=== PATIENT | male | born 1995 | race Caucasian/White ===

== ENCOUNTER 2021-09-30 15:25 | Inpatient (IN) ==
[2021-09-30] MEDS ORDERED: LORazepam 0.5 MG TAB PO STA (16:15)
--- NOTE | 2021-09-30 16:18 | Emergency Department Note ---
Impression & Plan Depression with suicidal ideation, Anxiety ED Provider Note Provider: Willis Richard MD DATE OF SERVICE: 09/30/2021 CHIEF COMPLAINT: Suicidal thoughts, anxious HISTORY OF PRESENT ILLNESS: Patient is a 25-year-old gentleman history of depression presenting here referred by his outpatient therapist today for evaluation of worsening suicidal thoughts over the past 2 weeks. Patient with history of some depression of been on multiple psychiatric medicines in the past. Denies a history of suicide attempts or inpatient hospitalizations. Reports over the last 2 weeks has had near constant thoughts of awake of wanting to end his life. States he has been thinking of the occasionally punched himself in the head some but has not knocked himself out. Denies pain currently. States he feels tremulous and is quite tearful during the exam. States not been eating well again not sleeping well. Patient denies any homicidal ideations or hallucinations. Patient denies any drug or alcohol iss ues. Patient states he believes he needs inpatient treatment at this time. Therapist did call and discussed with insurance case manager prior to his arrival stating that he had reported several plans that he may attempt to commit suicide. He however did not wish to provide a petitioning statement. REVIEW OF SYSTEMS: A total of 10 review of systems was obtained and negative except as stated above in the HPI. PAST MEDICAL HISTORY: As noted above MEDICATIONS: No medication last SOCIAL HISTORY: Here with fianc/partner PHYSICAL EXAM: GENERAL: alert and oriented tearful in bed Head: normocephalic and atraumatic EYES: No injection, discharge or icterus although tearful NECK: Trachea midline. Supple. ENT: Mucous membranes pink and moist. LUNGS: Airway patent. No retractions. Breath sounds clear with good air entry bilaterally. HEART: Regular rate and rhythm. No chest wall tenderness ABDOMEN: Soft and non-tender, without guarding or rebound. SKIN: Acyanotic, warm, dry, without rashes EXTREMITIES: Without swelling, tenderness or deformity NEUROLOGICAL: No focal deficits. No aphasia. No facial droop or slurred speech. Ambulatory. Psych: Anxious and tremulous on exam. Very tearful. Denies hallucinations not responding to external stimuli. Denies HI. Endorses SI but does not clearly define a plan to me. Patient's laboratory studies reviewed. Differential includes Mood disorder, infection, hypoglycemia, electrolyte abnormalities, cardiac sources, intracerebral event, toxicologic, trauma, neurologic, as well as other pathologies. IMPRESSION/MEDICAL DECISION MAKING: Patient history of depression on psychotropic medications and states compliance with these now with worsening anxiety and now suicidal thoughts. Patient initial evaluation wishes for inpatient treatment states he feels very anxious. Tearful. Given a small dose of oral Ativan. Basic labs obtained. No severe lab abnormality noted. Seen with insurance case manager. Voluntary inpatient psychiatric care was sought which I believe is reasonable given his report. Evaluated by and excepted [facility] for further inpatient psychiatric care. 201 signed. DIAGNOSIS: Suicidal thoughts, anxious depression DISPOSITION: Admission to [facility] for further inpatient psychiatric care. Past Med/Surg History Medical History (Updated 09/30/21 @ 23:01 by Willis Richard M.D.) Asthma CONTROLLED/LAST USE INHALER 4-5 MON AGO Bipolar disorder Depression Impacted teeth Infected tooth PT NOT SURE Surgical History (Updated 10/27/20 @ 14:33 by Ashley Cottrell RN) No history of previous surgery S/P wisdom tooth extraction (10/27/20) Impacted [place] Teeth Removal; #1, 16, 17, 32 Dr. 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 Beliefs That Will Affect Care: None marital status: Single Current Living Situation: Spouse current occupational status: student How many Children do You have: 0 Feels Safe at Home: Yes Assistive Devices: None Allergies Allergies Allergy/AdvReac Type Severity Reaction Status Date / Time No Known Allergies Allergy Verified 10/27/20 06:26 Home Meds Home Medications Medication Instructions Recorded Confirmed citalopram 20 mg tablet 20 mg PO QPM 09/10/20 09/30/21 trazodone 50 mg tablet 100 mg PO HS PRN tab 09/10/20 09/30/21 topiramate 25 mg tablet 50 mg PO DAILY 09/30/21 09/30/21 Results & Data (ED) Vital Signs Vital Signs - 24 hr 09/30/21 15:40 09/30/21 21:30 Temperature 36.9 C Temperature Source Oral Pulse Rate 82 Respiratory Rate 20 15 Respiratory Effort / Characteristics Non-Labored Respiratory Depth Normal Normal Blood Pressure 152/90 H Blood Pressure [Left Arm] 137/81 Blood Pressure Mean 110 Blood Pressure Mean [Left Arm] 99 Pulse Oximetry 99 98 Oxygen Delivery Method Room Air Room Air Sepsis Recent Fever Within 48 Hours No Sepsis New/Unexplained Change in Mental Status N/A Sepsis Action Taken by Nursing No Action Required Laboratory Data Result diagrams: 09/30/21 16:36 09/30/21 16:36 Lab Results 09/30/21 09/30/21 09/30/21 Range/Units 15:50 15:50 16:25 WBC (4.8-10.8) K/uL RBC (4.7-6.1) M/uL Hgb (14.0-18.0) g/dL Hct (42-52) % MCV (80-100) fL MCH (25-34) pg MCHC (32-36) g/dL RDW Std Deviation (36.4-46.3) fL RDW Coeff of Leigh (11.5-14.5) % Plt Count (130-400) K/uL MPV (7.4-10.4) fL Immature Gran % (Auto) % Neut % (Auto) % Lymph % (Auto) % Wilcox % (Auto) % Eos % (Auto) % Baso % (Auto) % Neut # (Auto) (1.4-6.5) K/uL Lymph # (Auto) (1.2-3.4) K/uL Wilcox # (Auto) (0.11-0.59) K/uL Eos # (Auto) (0-0.5) K/uL Baso # (Auto) (0-0.2) K/uL Immature Gran # (Auto) (0.00-0.02) K/uL Sodium (136-145) mmol/L Potassium (3.5-5.1) mmol/L Chloride (98-107) mmol/L Carbon Dioxide (21-32) mmol/L Anion Gap (3-11) BUN (6-23) mg/dl Creatinine (0.6-1.4) mg/dl Est Cr Clr Drug Dosing ml/min Est GFR ( Amer) ml/min Est GFR (Non-Af Amer) ml/min BUN/Creatinine Ratio (10-20) Glucose (70-99(Fasting)) mg/dl Calcium (8.5-10.1) mg/dl Total Bilirubin (0.2-1.0) mg/dl AST (13-39) U/L ALT (7-52) U/L Alkaline Phosphatase (34-104) U/L Total Protein (6.0-8.3) gm/dl Albumin (3.4-5.0) gm/dl Globulin (2.5-4.0) gm/dl Albumin/Globulin Ratio (0.9-2) TSH (0.300-4.500) uIu/ml Urine Color Dark Yellow Urine Appearance Clear (Clear) Urine pH 5.5 (4.5-7.5) Ur Specific [place] 1.030 (1.000-1.030) Urine Protein Trace H (Negative) Urine Glucose (UA) Negative (Negative) Urine Ketones 2+ H (Negative) Urine Blood Negative (Negative) Urine Nitrite Negative (Negative) Urine Bilirubin 1+ H (Negative) Urine Urobilinogen Negative (Negative) Ur Leukocyte Esterase Negative (Negative) Urine WBC (Auto) 1-5 (0-5) /hpf Urine RBC (Auto) 0-4 (0-4) /hpf U Hyaline Cast (Auto) 1-5 (0-5) /lpf U Epithel Cells (Auto) 10-20 H (0-5) /lpf Urine Bacteria (Auto) Negative (Negative) Salicylates (3.0-30) mg/dl Urine Opiates Screen Neg (Neg) Ur Methadone, Qual Neg (Neg) Acetaminophen (10-30) ug/ml Urine Barbiturates Neg (Neg) Ur Phencyclidine (PCP) Neg (Neg) U Amphetamin/Meth Scrn Neg (Neg) MDMA (Ecstasy) Screen Neg (Neg) U Benzodiazepines Scrn Neg (Neg) Ur Cocaine Metabolite Neg (Neg) U Marijuana (THC) Screen Pos H (Neg) Ethyl Alcohol mg/dL (<10.0) mg/dl SARS-CoV-2, RNA, NAAT NEGATIVE (NEGATIVE) 09/30/21 09/30/21 09/30/21 Range/Units 16:36 16:36 16:36 WBC 7.60 (4.8-10.8) K/uL RBC 5.49 (4.7-6.1) M/uL Hgb 16.5 (14.0-18.0) g/dL Hct 45.2 (42-52) % MCV 82.3 (80-100) fL MCH 30.1 (25-34) pg MCHC 36.5 H (32-36) g/dL RDW Std Deviation 36.4 (36.4-46.3) fL RDW Coeff of Leigh 12.2 (11.5-14.5) % Plt Count 262 (130-400) K/uL MPV 11.2 H (7.4-10.4) fL Immature Gran % (Auto) 0.3 % Neut % (Auto) 68.8 % Lymph % (Auto) 20.4 % Wilcox % (Auto) 9.9 % Eos % (Auto) 0.5 % Baso % (Auto) 0.1 % Neut # (Auto) 5.23 (1.4-6.5) K/uL Lymph # (Auto) 1.55 (1.2-3.4) K/uL Wilcox # (Auto) 0.75 H (0.11-0.59) K/uL Eos # (Auto) 0.04 (0-0.5) K/uL Baso # (Auto) 0.01 (0-0.2) K/uL Immature Gran # (Auto) 0.02 (0.00-0.02) K/uL Sodium 138 (136-145) mmol/L Potassium 3.6 (3.5-5.1) mmol/L Chloride 103 (98-107) mmol/L Carbon Dioxide 23 (21-32) mmol/L Anion Gap 12 H (3-11) BUN 11 (6-23) mg/dl Creatinine 0.97 (0.6-1.4) mg/dl Est Cr Clr Drug Dosing 149.5 ml/min Est GFR ( Amer) 126.1 ml/min Est GFR (Non-Af Amer) 108.8 ml/min BUN/Creatinine Ratio 11.3 (10-20) Glucose 97 (70-99(Fasting)) mg/dl Calcium 9.6 (8.5-10.1) mg/dl Total Bilirubin 1.0 (0.2-1.0) mg/dl AST 21 (13-39) U/L ALT 47 (7-52) U/L Alkaline Phosphatase 62 (34-104) U/L Total Protein 8.1 (6.0-8.3) gm/dl Albumin 5.0 (3.4-5.0) gm/dl Globulin 3.1 (2.5-4.0) gm/dl Albumin/Globulin Ratio 1.6 (0.9-2) TSH 1.654 (0.300-4.500) uIu/ml Urine Color Urine Appearance (Clear) Urine pH (4.5-7.5) Ur Specific [place] (1.000-1.030) Urine Protein (Negative) Urine Glucose (UA) (Negative) Urine Ketones (Negative) Urine Blood (Negative) Urine Nitrite (Negative) Urine Bilirubin (Negative) Urine Urobilinogen (Negative) Ur Leukocyte Esterase (Negative) Urine WBC (Auto) (0-5) /hpf Urine RBC (Auto) (0-4) /hpf U Hyaline Cast (Auto) (0-5) /lpf U Epithel Cells (Auto) (0-5) /lpf Urine Bacteria (Auto) (Negative) Salicylates (3.0-30) mg/dl Urine Opiates Screen (Neg) Ur Methadone, Qual (Neg) Acetaminophen (10-30) ug/ml Urine Barbiturates (Neg) Ur Phencyclidine (PCP) (Neg) U Amphetamin/Meth Scrn (Neg) MDMA (Ecstasy) Screen (Neg) U Benzodiazepines Scrn (Neg) Ur Cocaine Metabolite (Neg) U Marijuana (THC) Screen (Neg) Ethyl Alcohol mg/dL (<10.0) mg/dl SARS-CoV-2, RNA, NAAT (NEGATIVE) 09/30/21 09/30/21 Range/Units 16:36 16:36 WBC (4.8-10.8) K/uL RBC (4.7-6.1) M/uL Hgb (14.0-18.0) g/dL Hct (42-52) % MCV (80-100) fL MCH (25-34) pg MCHC (32-36) g/dL RDW Std Deviation (36.4-46.3) fL RDW Coeff of Leigh (11.5-14.5) % Plt Count (130-400) K/uL MPV (7.4-10.4) fL Immature Gran % (Auto) % Neut % (Auto) % Lymph % (Auto) % Wilcox % (Auto) % Eos % (Auto) % Baso % (Auto) % Neut # (Auto) (1.4-6.5) K/uL Lymph # (Auto) (1.2-3.4) K/uL [place] # (Auto) (0.11-0.59) K/uL Eos # (Auto) (0-0.5) K/uL Baso # (Auto) (0-0.2) K/uL Immature Gran # (Auto) (0.00-0.02) K/uL Sodium (136-145) mmol/L Potassium (3.5-5.1) mmol/L Chloride (98-107) mmol/L Carbon Dioxide (21-32) mmol/L Anion Gap (3-11) BUN (6-23) mg/dl Creatinine (0.6-1.4) mg/dl Est Cr Clr Drug Dosing ml/min Est GFR ( Amer) ml/min Est GFR (Non-Af Amer) ml/min BUN/Creatinine Ratio (10-20) Glucose (70-99(Fasting)) mg/dl Calcium (8.5-10.1) mg/dl Total Bilirubin (0.2-1.0) mg/dl AST (13-39) U/L ALT (7-52) U/L Alkaline Phosphatase (34-104) U/L Total Protein (6.0-8.3) gm/dl Albumin (3.4-5.0) gm/dl Globulin (2.5-4.0) gm/dl Albumin/Globulin Ratio (0.9-2) TSH (0.300-4.500) uIu/ml Urine Color Urine Appearance (Clear) Urine pH (4.5-7.5) Ur Specific [place] (1.000-1.030) Urine Protein (Negative) Urine Glucose (UA) (Negative) Urine Ketones (Negative) Urine Blood (Negative) Urine Nitrite (Negative) Urine Bilirubin (Negative) Urine Urobilinogen (Negative) Ur Leukocyte Esterase (Negative) Urine WBC (Auto) (0-5) /hpf Urine RBC (Auto) (0-4) /hpf U Hyaline Cast (Auto) (0-5) /lpf U Epithel Cells (Auto) (0-5) /lpf Urine Bacteria (Auto) (Negative) Salicylates < 3.0 L (3.0-30) mg/dl Urine Opiates Screen (Neg) Ur Methadone, Qual (Neg) Acetaminophen < 3 L (10-30) ug/ml Urine Barbiturates (Neg) Ur Phencyclidine (PCP) (Neg) U Amphetamin/Meth Scrn (Neg) MDMA (Ecstasy) Screen (Neg) U Benzodiazepines Scrn (Neg) Ur Cocaine Metabolite (Neg) U Marijuana (THC) Screen (Neg) Ethyl Alcohol mg/dL < 10.0 (<10.0) mg/dl SARS-CoV-2, RNA, NAAT (NEGATIVE) Administered Medications Discontinued Medications Lorazepam (Lorazepam 0.5 Mg Tab) 0.5 mg PO NOW STA Stop: 09/30/21 16:16 Last Admin: 09/30/21 16:26 Dose: 0.5 mg Documented by: [id number] Discharge Plan Visit Data Chief Complaint: Mental Health Evaluation Stated Complaint: [facility] ED Provider: Willis Richard Discharge Problem: Depression with suicidal ideation, Anxiety Patient Disposition: Admitted As Inpatient Forms Stand Alone Forms: [facility], Suicide Prevention Resources Prescriptions Prescriptions: No Action citalopram 20 mg tablet 20 mg PO QPM RF: 0 trazodone 50 mg tablet 100 mg PO HS PRN (Reason: Insomnia) RF: 0 topiramate 25 mg tablet 50 mg PO DAILY RF: 0 Referrals Referrals: PCP,NO [Physician] -
[2021-09-30 16:50] LABS: Appearance Urine Clear (Clear); Bacteria Urine Automated Negative (Negative); Blood Urine Negative (Negative); Color Urine Dark Yellow; Glucose Urine UA Negative (Negative); Ketones Urine 2+ (Negative); Leukocyte Esterase Urine Negative (Negative); Nitrite Urine Negative (Negative); Protein Urine Trace (Negative); RBC Urine Automated 0-4 /hpf (0-4); Urobilinogen Urine Negative (Negative); pH Urine 5.5 (4.5-7.5)
[2021-09-30 16:52] LABS: Basophils # (auto) 0.01 K/uL (0-0.2); Basophils % (auto) 0.1 %; Eosinophils # (auto) 0.04 K/uL (0-0.5); Eosinophils % (auto) 0.5 %; Hematocrit (blood only) 45.2 % (42-52); Hemoglobin 16.5 g/dL (14.0-18.0); Immature Granulocytes # (auto) 0.02 K/uL (0.00-0.02); Immature Granulocytes % (auto) 0.3 %; Lymphocytes # (auto) 1.55 K/uL (1.2-3.4); Lymphocytes % (auto) 20.4 %; Mean Corpuscular Hemoglobin 30.1 pg (25-34); Mean Corpuscular Hgb Conc 36.5 g/dL (32-36); Mean Corpuscular Volume 82.3 fL (80-100); Mean Platelet Volume 11.2 fL (7.4-10.4); Monocytes # (auto) 0.75 K/uL (0.11-0.59); Monocytes % (auto) 9.9 %; Neutrophils # (auto) 5.23 K/uL (1.4-6.5); Neutrophils % (auto) 68.8 %; Platelet Count 262 K/uL (130-400); RDW Coefficient of Variation 12.2 % (11.5-14.5); RDW Standard Deviation 36.4 fL (36.4-46.3); Red Blood Count 5.49 M/uL (4.7-6.1)
[2021-09-30 16:53] LABS: Bilirubin Urine 1+ (Negative)
[2021-09-30 17:03] LABS: Amphetamines+Metham, Urine Neg (Neg); Barbiturates, Urine Neg (Neg); Benzodiazepine, Urine Neg (Neg); Cocaine, Urine Neg (Neg); MDMA (Ecstacy), Urine Neg (Neg); Methadone, Urine Neg (Neg); Opiate, Urine Neg (Neg); Phencyclidine, Urine Neg (Neg)
[2021-09-30 17:11] LABS: Acetaminophen < 3 ug/ml (10-30); Salicylate < 3.0 mg/dl (3.0-30)
[2021-09-30 17:12] LABS: Albumin Globulin Ratio 1.6 (0.9-2); BUN Creatinine Ratio 11.3 (10-20); Calcium 9.6 mg/dl (8.5-10.1); Creatinine Clr Calc Pharmacy 149.5 ml/min; Est GFR (African American) 126.1 ml/min; Est GFR (Non-African American) 108.8 ml/min; Globulin 3.1 gm/dl (2.5-4.0); Potassium 3.6 mmol/L (3.5-5.1); Total Protein 8.1 gm/dl (6.0-8.3)
[2021-09-30] MEDS ORDERED: MAGNESIUM HYDROXIDE SUSP 30 ML UDC PO PRN (22:25)
[2021-09-30] MEDS ORDERED: hydrOXYzine HCl 25 MG TAB PO PRN (22:25)
[2021-09-30] MEDS ORDERED: BISMUTH SUBSALICYLATE LIQD 236 ML PO PRN (22:25)
[2021-09-30] MEDS ORDERED: ALUMINUM/MAGNESIUM SUSP 30 ML UDC PO PRN (22:25)
[2021-09-30] MEDS ORDERED: SODIUM CHLORIDE 0.65% NA SOLN 45 ML (OCEAN) PRN (22:25)
[2021-09-30] MEDS ORDERED: ACETAMINOPHEN 325 MG TAB PO PRN (22:25)
[2021-09-30] MEDS ORDERED: traZODone HCL 100 MG TAB PO PRN (23:45)
[2021-10-01] MEDS ORDERED: CITALOPRAM 20 MG TAB PO STA (00:27)
--- NOTE | 2021-10-01 13:40 | History & Physical ---
Date of Service October 01, 2021 Impression / Recommendations Impression The patient is a 25 year old individual who prefers they/them pronouns with a history of depression and BPAD who was admitted for worsening depression and SI with plans in the context of recent stressors including completing his masters degree and upcoming move. Diagnostically consistent with MDD with anxious distress and KELLY with panic attacks. They do not have any documented history of manic episodes, possible hx of hypomania and thus BPAD II but topimax is not effective for allan nor hypomania so suspect if he was going to develop hypomania on unopposed SSRI treatment this would have occurred already. The tarsha patel is deemed unstable and requires psychiatric hospitalization for diagnostic clarification, safety and stabilization, medication management and development of further coping skills. Discussed medication treatment options in detail including SSRI, SNRI, lamictal, other mood stabilizers, mirtazapine. Discussed risks, benefits and alternatives. Patient would like to start and consented to venlafaxine ER for depression and anxiety and would like to stop citalopram and topimax as they have not been effective. Reviewed side effects including but not limited to: GI, HANSON, sexual side effects, HTN, diaphoresis, priapism and counseled on black box warning of potential for emergence of or increased SI and need to let staff know should this occur or should they feel unsafe. Also discussed importance of seeking emergency care following discharge if this side effect occurs in the future. (1) Recurrent severe major depressive disorder with anxiety: (2) Suicidal ideation: (3) Self-harming behavior: (4) Anxiety: 10/01/21: The patient was admitted to the [facility] ([facility] unit) on q15 min checks (behavioral with suicide precautions) for safety. The patient will participate in group, recreational, and milieu therapies and will be offered additional individual and family sessions as clinically appropriate. -Decrease citalopram to 10mg qhs -Effexor XR 37.5 mg qd -Discontinue Topimax -trazodone 100mg qhs -benadryl cream prn for contact dermatitis from tape from blood draw -zofran prn Inventory Assets Strengths: well educated, supportive partner, has outpatient therapist, willing to seek treatment Needs: additional coping skills, medication adjustment, safety and stabilization Suicide Risk Level Suicide Risk Level: High (q15 min suicide checks) (High-Moderate ) Suicide Risk Level Comments: Acute risk high-moderate given SI with plan prior to admission and ongoing active SI but no plan or intent and feels safe in the inpatient setting and able to alert staff if SI worsens or intensifies or if he feels unsafe. Risk Factors Assessment Male: Yes : Yes Do You Have Access To A Gun?: No Health Problems: No Mental Health Diagnoses: Yes Substance Use Disorders: No Previous Attempt: Yes Family History of Suicide: No Previous Psychiatric Hospitalization: No Hopelessness: Yes Protective Factors Assessment Employed: Yes ([employer]) Stable Relationships: Yes Supportive Family: Yes Good Rapport with Provider: Yes Psychiatric History Identifying Data GOMEZ DAILY is a 25-year-old gender neutral individual who currently lives in [place] with their partner, has a history of bipolar disorder and depression, and was admitted on 09/30/21 22:25 on a 201 voluntary commitment for worsening depression and SI with plan. Chief Complaint "It's just hard to want life right now". History of Present Illness Gomez presents for psychiatric admission at the recommendation of their outpatient psychiatrist for worsening depression and intensifying SI with thoughts of overdosing on medication or cutting himself and bleeding to . Their depression and SI has been worsening over the last two weeks with near c onstant thoughts of SI which are making it difficult for them to sleep and caused self-harm urges with some behaviors of hitting themself in the head. 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 "My anxiety is fueling concerns about the future and then the depression is making it feel like what's the point". They endorse symptoms of depression including low energy, decreased motivation, social isolation, poor sleep, decreased appetite (lost 19lbs in the last few weeks, in part also due to recent COVID infection), tearfulness, hopelessness and SI with plans. They also endorse increased anxiety with panic attacks with SOB as well as somatic symptoms of nausea and vomiting (non-intentional) and increased paranoia about someone breaking in at night or being followed if they go on walks at night/nightmares. They are currently prescribed citalopram for depression (has been on this since high school), topimax for bipolar disorder and trazodone 100mg qhs (this works well) by their psychiatric provider at [facility]. Psychiatric ROS notable for denial of history or current symptoms of psychosis, HI/aggression, OCD, hx anorexia in high school but denies any current restriction or purging, no depersonalization/derealization, no hx trauma/PTSD. They endorses a history of "once in awhile" in [facility] and when they first started their masters degree he would go 2-3 days with limited sleep and they would try to nap but couldn't fall asleep and would feel tired. [facility] [place] drive home a lot which was 3.5 hours away and would do it on a whim and drive home and then get upset and drive right back to school. Sometimes would talk more quickly. Never had a clear episode of 5 days or more of elevated or irritable mood with decreased need for sleep and elevated energy. Past Psychiatric History Current Psychiatric Diagnosis: BPAD, MDD Outpatient Services: Sees Ev Jordan at [facility], no currently therapist, saw a therapist during [facility] Previous Psych Admissions: n/a Do You Have Access To A Gun?: No History of Previous Suicide Attempt: Yes (tried to hang themself in high school and then saw counselor ) Past Medication Trials: zoloft (caused weight gain), abilify caused anxiety, geodone concern with combination with celexa Past Head Trauma/Neuro History History of Concussion/Seizure: No Allergies Allergy/AdvReac Type Severity Reaction Status Date / Time No Known Allergies Allergy Verified 10/27/20 06:26 Home Medications Medication Instructions Recorded Confirmed Type citalopram 20 mg tablet 20 mg PO QPM 09/10/20 09/30/21 History trazodone 50 mg tablet 100 mg PO HS PRN tab 09/10/20 09/30/21 History topiramate 25 mg tablet 50 mg PO DAILY 09/30/21 09/30/21 History Family History Family History of: Depression and Alcoholism/Drug Abuse (maternal side with alcohol use disorders ) Family Mental Health History Comment: mother has depression and takes citalopram Alcohol History Hx of Alcohol Use Over the Past 12 Months: No AUDIT Total Score: 0 Smoking Use Have You Smoked or Used Tobacco Products in the Last 30 Days: No tobacco type: cigarettes Smoking Status: Former smoker Substance History Hx of Prescription Med Misuse Over the Past 12 Months: No Hx of Over the Counter Med Misuse Over the Past 12 Months: No Hx of Inhalent Misuse Over the Past 12 Months: No Hx of Organic Substance Use Over the Past 12 Months: Yes (delta 10 pen thc) Hx of Illegal Substances/Street Drug Use Over Past 12 Months: No Problems as a Result of Past Substance Use: None Identified Had stopped using synthetic cannabis for a long-time as they thought it might be contributing to anxiety but used it about a week ago and then a few days ago to see if it would help but it again caused increased anxiety. They don't plan to use it again in the short-term, possibly in the future. Personal History Living Arrangements: Apartment (with his partner) Childhood: Parents are -his mom is moving back to [place], and his dad lives there. They grew up in [place] and has a sister who lives in [place]. 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 Other Number Of Children: 0 Beliefs That Will Affect Care: None Current Legal Problems: No Hx Legal Problems: No Hx Traumatic Life Events: No Additional Comments: Just graduated from [employer] with Master's in Advanced BioNutrition. 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 Prefers they/them pronouns. Identifies as queer Patient History Medical History Asthma CONTROLLED/LAST USE INHALER 4-5 MON AGO Bipolar disorder Depression Impacted teeth Infected tooth PT NOT SURE Surgical History No history of previous surgery S/P wisdom tooth extraction (10/27/20) Impacted [place] Teeth Removal; #1, 16, 17, 32 Dr. Browne Family History Mother Diabetes Heart disease Hypertension Father Diabetes Heart disease Hypertension Uncle Family history of esophageal cancer Social History Smoking Status: Former smoker Tobacco Type: Cigarettes Cigarettes Per Day: 5-6 CIGARRETTES PER DAY, ADVISED NPO; Hx Alcohol Use: Yes Hx Substance Use: Yes Preferred Language: Danish Communication Ability: Effective Agricultural Systems Specialist Required: No Beliefs That Will Affect Care: None marital status: Single Current Living Situation: Spouse current occupational status: student How many Children do You have: 0 Feels Safe at Home: Yes Assistive Devices: None Review of Systems Review of Systems: All systems reviewed & are unremarkable except as noted in HPI & below Physical Exam Psychiatric: Orientation: alert and oriented x 3 Apperance: appropriately dressed and appropriately groomed Eye Contact: good eye contact Motor Behavior: no abnormal motor movements Speech: normal rate/rhythm/volume of speech Affect: + depressed affect, + anxious affect and + tearful affect Mood: + depressed mood and + anxious mood Thought Process: goal directed thought process Thought Content: reality based without delusions Suicidal Thoughts: denies suicidal plan and denies suicidal intent; + reports suicidal thoughts Homicidal Thoughts: denies homicidal thoughts Hallucinations: no auditory hallucinations and no visual hallucinations Cognition: recent memory grossly intact, remote memory grossly intact, attention grossly intact and language grossly intact Estimated Intelligence: consistent with education level Insight: + fair insight Judgement: + fair judgement Vital Signs (Past 24 Hours): Last Vital Signs Temp 36.8 C 10/01/21 06:29 Pulse 77 10/01/21 06:31 Resp 16 10/01/21 06:29 BP 114/81 10/01/21 06:31 Pulse Ox 96 10/01/21 00:14 Exam Statement: A physical exam was performed in the ED by Hilary for the purposes of medical clearance. I accept that physical as correct and adequate for the purposes of the inpatient physical exam. Results & Data ([facility]) Laboratory Results Laboratory Results - last 24 hr 09/30/21 09/30/21 09/30/21 15:50 15:50 15:50 WBC RBC Hgb Hct MCV MCH MCHC RDW Std Deviation RDW Coeff of Leigh Plt Count MPV Immature Gran % (Auto) Neut % (Auto) Lymph % (Auto) [place] % (Auto) Eos % (Auto) Baso % (Auto) Neut # (Auto) Lymph # (Auto) [place] # (Auto) Eos # (Auto) Baso # (Auto) Immature Gran # (Auto) Sodium Potassium Chloride Carbon Dioxide Anion Gap BUN Creatinine Est Cr Clr Drug Dosing Est GFR ( Amer) Est GFR (Non-Af Amer) BUN/Creatinine Ratio Glucose Calcium Total Bilirubin AST ALT Alkaline Phosphatase Total Protein Albumin Globulin Albumin/Globulin Ratio TSH Urine Color Dark Yellow Urine Appearance Clear Urine pH 5.5 Ur Specific [place] 1.030 Urine Protein Trace H Urine Glucose (UA) Negative Urine Ketones 2+ H Urine Blood Negative Urine Nitrite Negative Urine Bilirubin 1+ H Urine Urobilinogen Negative Ur Leukocyte Esterase Negative Urine WBC (Auto) 1-5 Urine RBC (Auto) 0-4 U Hyaline Cast (Auto) 1-5 U Epithel Cells (Auto) 10-20 H Urine Bacteria (Auto) Negative Salicylates Urine Opiates Screen Neg Ur Methadone, Qual Neg Acetaminophen Urine Barbiturates Neg Ur Phencyclidine (PCP) Neg U Amphetamin/Meth Scrn Neg MDMA (Ecstasy) Screen Neg U Benzodiazepines Scrn Neg Ur Cocaine Metabolite Neg U Marijuana (THC) Screen Pos H U Marijuana THC Carboxy Pending Drug Screen Comment Pending Ethyl Alcohol mg/dL SARS-CoV-2, RNA, NAAT 09/30/21 09/30/21 09/30/21 16:25 16:36 16:36 WBC 7.60 RBC 5.49 Hgb 16.5 Hct 45.2 MCV 82.3 MCH 30.1 MCHC 36.5 H RDW Std Deviation 36.4 RDW Coeff of Leigh 12.2 Plt Count 262 MPV 11.2 H Immature Gran % (Auto) 0.3 Neut % (Auto) 68.8 Lymph % (Auto) 20.4 [place] % (Auto) 9.9 Eos % (Auto) 0.5 Baso % (Auto) 0.1 Neut # (Auto) 5.23 Lymph # (Auto) 1.55 [place] # (Auto) 0.75 H Eos # (Auto) 0.04 Baso # (Auto) 0.01 Immature Gran # (Auto) 0.02 Sodium 138 Potassium 3.6 Chloride 103 Carbon Dioxide 23 Anion Gap 12 H BUN 11 Creatinine 0.97 Est Cr Clr Drug Dosing 149.5 Est GFR ( Amer) 126.1 Est GFR (Non-Af Amer) 108.8 BUN/Creatinine Ratio 11.3 Glucose 97 Calcium 9.6 Total Bilirubin 1.0 AST 21 ALT 47 Alkaline Phosphatase 62 Total Protein 8.1 Albumin 5.0 Globulin 3.1 Albumin/Globulin Ratio 1.6 TSH Urine Color Urine Appearance Urine pH Ur Specific [place] Urine Protein Urine Glucose (UA) Urine Ketones Urine Blood Urine Nitrite Urine Bilirubin Urine Urobilinogen Ur Leukocyte Esterase Urine WBC (Auto) Urine RBC (Auto) U Hyaline Cast (Auto) U Epithel Cells (Auto) Urine Bacteria (Auto) Salicylates Urine Opiates Screen Ur Methadone, Qual Acetaminophen Urine Barbiturates Ur Phencyclidine (PCP) U Amphetamin/Meth Scrn MDMA (Ecstasy) Screen U Benzodiazepines Scrn Ur Cocaine Metabolite U Marijuana (THC) Screen U Marijuana THC Carboxy Drug Screen Comment Ethyl Alcohol mg/dL SARS-CoV-2, RNA, NAAT NEGATIVE 09/30/21 09/30/21 09/30/21 16:36 16:36 16:36 WBC RBC Hgb Hct MCV MCH MCHC RDW Std Deviation RDW Coeff of Leigh Plt Count MPV Immature Gran % (Auto) Neut % (Auto) Lymph % (Auto) [place] % (Auto) Eos % (Auto) Baso % (Auto) Neut # (Auto) Lymph # (Auto) [place] # (Auto) Eos # (Auto) Baso # (Auto) Immature Gran # (Auto) Sodium Potassium Chloride Carbon Dioxide Anion Gap BUN Creatinine Est Cr Clr Drug Dosing Est GFR ( Amer) Est GFR (Non-Af Amer) BUN/Creatinine Ratio Glucose Calcium Total Bilirubin AST ALT Alkaline Phosphatase Total Protein Albumin Globulin Albumin/Globulin Ratio TSH 1.654 Urine Color Urine Appearance Urine pH Ur Specific [place] Urine Protein Urine Glucose (UA) Urine Ketones Urine Blood Urine Nitrite Urine Bilirubin Urine Urobilinogen Ur Leukocyte Esterase Urine WBC (Auto) Urine RBC (Auto) U Hyaline Cast (Auto) U Epithel Cells (Auto) Urine Bacteria (Auto) Salicylates < 3.0 L Urine Opiates Screen Ur Methadone, Qual Acetaminophen < 3 L Urine Barbiturates Ur Phencyclidine (PCP) U Amphetamin/Meth Scrn MDMA (Ecstasy) Screen U Benzodiazepines Scrn Ur Cocaine Metabolite U Marijuana (THC) Screen U Marijuana THC Carboxy Drug Screen Comment Ethyl Alcohol mg/dL < 10.0 SARS-CoV-2, RNA, NAAT Current Inpatient Medications Current Inpatient Medications: Current Inpatient Medications Acetaminophen (Acetaminophen 325 Mg Tab) 650 mg PO Q4H PRN PRN Reason: Headache or Minor Fever Stop: 10/30/21 22:24 Al Hydrox/Mg Hydrox/Simethicone (Aluminum/Magnesium Susp 30 Ml Udc) 30 ml PO Q4H PRN PRN Reason: GI Upset Stop: 10/30/21 22:24 Bismuth Subsalicylate (Bismuth Subsalicylate Liqd 236 Ml) 15 ml PO PRN PRN PRN Reason: Loose Stool Stop: 10/30/21 22:24 Hydroxyzine HCl (Hydroxyzine Hcl 25 Mg Tab) 50 mg PO HSZ PRN PRN Reason: Insomnia Stop: 10/30/21 22:24 Hydroxyzine HCl (Hydroxyzine Hcl 25 Mg Tab) 25 mg PO Q4H PRN PRN Reason: Anxiety Stop: 10/30/21 22:24 Magnesium Hydroxide (Magnesium Hydroxide Susp 30 Ml Udc) 30 ml PO DAILY PRN PRN Reason: Constipation Stop: 10/30/21 22:24 Sodium Chloride (Sodium Chloride 0.65% Na Soln 45 Ml ([place])) 1 - 2 sprays NA PRN PRN PRN Reason: Nasal Dryness/Congestion Stop: 10/30/21 22:24 Trazodone HCl (Trazodone Hcl 100 Mg Tab) 100 mg PO HS PRN PRN Reason: Insomnia Stop: 10/31/21 21:59 Last Admin: 10/01/21 00:44 Dose: 100 mg Documented by:
[2021-10-01] MEDS: hydrOXYzine HCl 25 MG TAB PO PRN (15:01)
[2021-10-01] MEDS ORDERED: traZODone HCL 100 MG TAB PO PRN (15:13)
[2021-10-01] MEDS ORDERED: ONDANSETRON 2 MG OD TAB PO PRN (15:24)
[2021-10-01] MEDS ORDERED: traZODone HCL 50 MG TAB PO SCH (21:00)
[2021-10-01] MEDS ORDERED: CITALOPRAM 20 MG TAB PO SCH (22:00)
[2021-10-01] MEDS: traZODone HCL 100 MG TAB PO SCH (22:37)
--- NOTE | 2021-10-02 08:47 | Psychiatric Progress Note ---
Date of Service October 02, 2021 Impression / Recommendations Impression The patient is a 25 year old individual who prefers they/them pronouns with a history of depression and BPAD who was admitted for worsening depression and SI with plans in the context of recent stressors including completing his masters degree and upcoming move. Diagnostically consistent with MDD with anxious distress and KELLY with panic attacks. They do not have any documented history of manic episodes, possible hx of hypomania and thus BPAD II but topimax is not effective for allan nor hypomania so suspect if he was going to develop hypomania on unopposed SSRI treatment this would have occurred already. The tarsha patel is deemed unstable and requires psychiatric hospitalization for diagnostic clarification, safety and stabilization, medication management and development of further coping skills. 10/02/2021: Slightly tachycardic this morning but asymptomatic, likely due to decreased po intake yesterday. Improved po intake today. Tolerating initation of effexor and taper of celexa. Remains very tearful, anxious, easily overwhelmed and depressed. (1) Recurrent severe major depressive disorder with anxiety: (2) Suicidal ideation: (3) Self-harming behavior: (4) Anxiety: 10/02/21: Decrease citalopram to 5 mg qhs. Continue with Effexor XR 37.5 mg and trazodone prn. 10/01/21: The patient was admitted to the [facility] ([facility] mental health unit) on q15 min checks (behavioral with suicide precautions) for safety. The patient will participate in group, recreational, and milieu therapies and will be offered additional individual and family sessions as clinically appropriate. -Decrease citalopram to 10mg qhs -Effexor XR 37.5 mg qd -Discontinue Topimax -trazodone 100mg qhs -benadryl cream prn for contact dermatitis from tape from blood draw -zofran prn Inventory Assets Strengths: well educated, supportive partner, has outpatient therapist, willing to seek treatment Needs: additional coping skills, medication adjustment, safety and stabilization Suicide Risk Level Suicide Risk Level: High (q15 min suicide checks) (High-Moderate ) Suicide Risk Level Comments: Acute risk high-moderate given SI with plan prior to admission, depression with tearfulness but denies SI today and feels safe in the inpatient setting and able to alert staff if SI worsens or intensifies or if he feels unsafe. Risk Factors Assessment Male: Yes : Yes Do You Have Access To A Gun?: No Health Problems: No Mental Health Diagnoses: Yes Substance Use Disorders: No Previous Attempt: Yes Family History of Suicide: No Previous Psychiatric Hospitalization: No Hopelessness: Yes Protective Factors Assessment Employed: Yes ([employer]) Stable Relationships: Yes Supportive Family: Yes Good Rapport with Provider: Yes Interval History Identifying Information MARCELLE DAILY is a 25-year-old gender neutral individual who currently lives in [place] with their partner, has a history of bipolar disorder and depression, and was admitted on 09/30/21 22:25 on a 201 voluntary commitment for worsening depression and SI with plan. Chief Complaint "I just want to see my partner". Review of Systems Sleep Information Total Hours of Sleep: 7 Meal Information Percent Meal Consumed - Breakfast: 25 Percent Meal Consumed - Lunch: 25 Percent Meal Consumed - Dinner: 0 Nutrition Comment: food saved for later Subjective Subjective Patient was seen & assessed and interval progress reviewed with treatment team nursing and social work. Very tearful through the afternoon and evening and isolative to theirroom. Ate more at breakfast and lunch today. Attending groups but remains intermittently tearful. Misses their partner and they find it difficult to not be able to go outside as this helps them cope with mood symptoms. Validated the challenge of no visitors due to COVID and brainstromed other ideas like facetime call and talking to their partner while partner visits [facility] that they could see from windows on the unit. They report no side effects with celexa taper nor from first dose of Effexor. Slept ok with trazodone. Denies SI today, feels groups and distraction are helping. Feels their mood is "a little bit better". Physical Exam Psychiatric Orientation: alert and oriented x 3 Apperance: appropriately dressed and appropriately groomed Eye Contact: good eye contact Motor Behavior: no abnormal motor movements Speech: normal rate/rhythm/volume of speech Affect: + depressed affect, + anxious affect and + tearful affect Mood: + depressed mood and + anxious mood Thought Process: goal directed thought process Thought Content: reality based without delusions Suicidal Thoughts: denies suicidal plan and denies suicidal intent (intermittent SI, none so far today); + reports suicidal thoughts Homicidal Thoughts: denies homicidal thoughts Hallucinations: no auditory hallucinations and no visual hallucinations Cognition: recent memory grossly intact, remote memory grossly intact, attention grossly intact and language grossly intact Estimated Intelligence: consistent with education level Insight: + fair insight Judgement: + fair judgement Vital Signs (Past 24 Hours) Last Vital Signs Temp 36.6 C 10/02/21 06:30 Pulse 120 H 10/02/21 06:32 Resp 16 10/02/21 06:30 BP 116/71 10/02/21 06:32 Pulse Ox 96 10/01/21 00:14 Results & Data ([facility]) Current Inpatient Medications Current Inpatient Medications: Current Inpatient Medications Acetaminophen (Acetaminophen 325 Mg Tab) 650 mg PO Q4H PRN PRN Reason: Headache or Minor Fever Stop: 10/30/21 22:24 Al Hydrox/Mg Hydrox/Simethicone (Aluminum/Magnesium Susp 30 Ml Udc) 30 ml PO Q4H PRN PRN Reason: GI Upset Stop: 10/30/21 22:24 Bismuth Subsalicylate (Bismuth Subsalicylate Liqd 236 Ml) 15 ml PO PRN PRN PRN Reason: Loose Stool Stop: 10/30/21 22:24 Citalopram Hydrobromide (Citalopram 20 Mg Tab) 10 mg PO HS MICHELLE Stop: 10/31/21 21:59 Last Admin: 10/01/21 22:36 Dose: 10 mg Documented by: Hydroxyzine HCl (Hydroxyzine Hcl 25 Mg Tab) 50 mg PO HSZ PRN PRN Reason: Insomnia Stop: 10/30/21 22:24 Hydroxyzine HCl (Hydroxyzine Hcl 25 Mg Tab) 25 mg PO Q4H PRN PRN Reason: Anxiety Stop: 10/30/21 22:24 Last Admin: 10/01/21 15:01 Dose: 25 mg Documented by: Magnesium Hydroxide (Magnesium Hydroxide Susp 30 Ml Udc) 30 ml PO DAILY PRN PRN Reason: Constipation Stop: 10/30/21 22:24 Ondansetron HCl (Ondansetron 2 Mg Od Tab) 2 mg PO DAILY PRN PRN Reason: Nausea Stop: 10/31/21 15:23 Sodium Chloride (Sodium Chloride 0.65% Na Soln 45 Ml ([place])) 1 - 2 sprays NA PRN PRN PRN Reason: Nasal Dryness/Congestion Stop: 10/30/21 22:24 Trazodone HCl (Trazodone Hcl 100 Mg Tab) 100 mg PO HS MICHELLE Stop: 10/31/21 21:59 Last Admin: 10/01/21 22:37 Dose: 100 mg Documented by: Venlafaxine HCl (Venlafaxine Hcl Xr 37.5 Mg Capxr) 37.5 mg PO QAM MICHELLE Stop: 11/01/21 08:59 Zinc Acetate/Diphenhydramine (Diphenhydramine 2%/Zinc 0.1% Cream 28gm Tube) 1 appln EXT BID PRN PRN Reason: rash Stop: 10/31/21 15:23 Mental Health & Subst Abuse Tx Therapist Name of Therapist: None Junior Data Analyst Name of Junior Data Analyst: None
[2021-10-02] MEDS: VENLAFAXINE HCL XR 37.5 MG CAPXR PO SCH (08:52)
[2021-10-02] MEDS: traZODone HCL 100 MG TAB PO SCH (21:24)
[2021-10-02] MEDS: CITALOPRAM 20 MG TAB PO SCH (21:53)
[2021-10-03] MEDS: VENLAFAXINE HCL XR 37.5 MG CAPXR PO SCH (08:24)
--- NOTE | 2021-10-03 08:46 | Psychiatric Progress Note ---
Date of Service October 03, 2021 Impression / Recommendations Impression The patient is a 25 year old individual who prefers they/them pronouns with a history of depression and BPAD who was admitted for worsening depression and SI with plans in the context of recent stressors including completing his masters degree and upcoming move. Diagnostically consistent with MDD with anxious distress and KELLY with panic attacks. They do not have any documented history of manic episodes, possible hx of hypomania and thus BPAD II but topimax is not effective for allan nor hypomania so suspect if he was going to develop hypomania on unopposed SSRI treatment this would have occurred already. The tarsha patel is deemed unstable and requires psychiatric hospitalization for diagnostic clarification, safety and stabilization, medication management and development of further coping skills. 10/03/2021: They consent to ongoing cross-taper from Celexa to venlafaxine ER. Remains very tearful, anxious, easily overwhelmed and depressed in the morning but participating more today and feels a bit better in the afternoons. (1) Recurrent severe major depressive disorder with anxiety: (2) Suicidal ideation: (3) Self-harming behavior: (4) Anxiety: 10/03/21: Continue citlaopram for one more day. Increase Effexor XR to 75mg qd tomorrow. Continue trazodone qhs prn. 10/02/21: Decrease citalopram to 5 mg qhs. Continue with Effexor XR 37.5 mg and trazodone prn. 10/01/21: The patient was admitted to the [facility] ([facility] mental health unit) on q15 min checks (behavioral with suicide precautions) for safety. The patient will participate in group, recreational, and milieu therapies and will be offered additional individual and family sessions as clinically appropriate. -Decrease citalopram to 10mg qhs -Effexor XR 37.5 mg qd -Discontinue Topimax -trazodone 100mg qhs -benadryl cream prn for contact dermatitis from tape from blood draw -zofran prn Inventory Assets Strengths: well educated, supportive partner, has outpatient therapist, willing to seek treatment Needs: additional coping skills, medication adjustment, safety and stabilization Suicide Risk Level Suicide Risk Level: High (q15 min suicide checks) (High-Moderate ) Suicide Risk Level Comments: Acute risk high-moderate given SI with plan prior to admission, depression with tearfulness with intermittent SI but denies this afternoon and feels safe in the inpatient setting and able to alert staff if SI worsens or intensifies or if he feels unsafe. Risk Factors Assessment Male: Yes : Yes Do You Have Access To A Gun?: No Health Problems: No Mental Health Diagnoses: Yes Substance Use Disorders: No Previous Attempt: Yes Family History of Suicide: No Previous Psychiatric Hospitalization: No Hopelessness: Yes Protective Factors Assessment Employed: Yes ([employer]) Stable Relationships: Yes Supportive Family: Yes Good Rapport with Provider: Yes Interval History Identifying Information MARCELLE DAILY is a 25-year-old gender neutral individual who currently lives in [place] with their partner, has a history of bipolar disorder and depression, and was admitted on 09/30/21 22:25 on a 201 voluntary commitment for worsening depression and SI with plan. Chief Complaint "I'm still really sad in the mornings". Review of Systems Sleep Information Total Hours of Sleep: 6.75 Meal Information Percent Meal Consumed - Breakfast: 50 Percent Meal Consumed - Lunch: 100 Percent Meal Consumed - Dinner: 95 Nutrition Comment: food saved for later Subjective Subjective Patient was seen & assessed and interval progress reviewed with treatment team nursing and social work. Difficulty morning yesterday but more active in groups yesterday evening. Today again had a more difficult morning with sadness and SI. However this afternoon is feeling "a little better". No side effects from venlafaxine so far and agrees to dose increase. Misses their partner but tolerating being a way from them a bit better. Had sinus congestion and found christian helpful. Physical Exam Psychiatric Orientation: alert and oriented x 3 Apperance: appropriately dressed and appropriately groomed Eye Contact: good eye contact Motor Behavior: no abnormal motor movements Speech: normal rate/rhythm/volume of speech Affect: + depressed affect and + anxious affect Mood: + depressed mood and + anxious mood Thought Process: goal directed thought process Thought Content: reality based without delusions Suicidal Thoughts: denies suicidal plan and denies suicidal intent; + reports alegre icidal thoughts (intermittent SI, worse in the mornings ) Homicidal Thoughts: denies homicidal thoughts Hallucinations: no auditory hallucinations and no visual hallucinations Cognition: recent memory grossly intact, remote memory grossly intact, attention grossly intact and language grossly intact Estimated Intelligence: consistent with education level Insight: + fair insight Judgement: + fair judgement Vital Signs (Past 24 Hours) Last Vital Signs Temp 36.4 C L 10/03/21 06:00 Pulse 72 10/03/21 06:35 Resp 16 10/03/21 06:00 BP 116/82 10/03/21 06:35 Pulse Ox 98 10/03/21 06:00 Results & Data ([facility]) Current Inpatient Medications Current Inpatient Medications: Current Inpatient Medications Acetaminophen (Acetaminophen 325 Mg Tab) 650 mg PO Q4H PRN PRN Reason: Headache or Minor Fever Stop: 10/30/21 22:24 Al Hydrox/Mg Hydrox/Simethicone (Aluminum/Magnesium Susp 30 Ml Udc) 30 ml PO Q4H PRN PRN Reason: GI Upset Stop: 10/30/21 22:24 Bismuth Subsalicylate (Bismuth Subsalicylate Liqd 236 Ml) 15 ml PO PRN PRN PRN Reason: Loose Stool Stop: 10/30/21 22:24 Citalopram Hydrobromide (Citalopram 20 Mg Tab) 5 mg PO HS MICHELLE Stop: 11/01/21 21:59 Last Admin: 10/02/21 21:53 Dose: 5 mg Documented by: Hydroxyzine HCl (Hydroxyzine Hcl 25 Mg Tab) 50 mg PO HSZ PRN PRN Reason: Insomnia Stop: 10/30/21 22:24 Hydroxyzine HCl (Hydroxyzine Hcl 25 Mg Tab) 25 mg PO Q4H PRN PRN Reason: Anxiety Stop: 10/30/21 22:24 Last Admin: 10/01/21 15:01 Dose: 25 mg Documented by: Magnesium Hydroxide (Magnesium Hydroxide Susp 30 Ml Udc) 30 ml PO DAILY PRN PRN Reason: Constipation Stop: 10/30/21 22:24 Ondansetron HCl (Ondansetron 2 Mg Od Tab) 2 mg PO DAILY PRN PRN Reason: Nausea Stop: 10/31/21 15:23 Sodium Chloride (Sodium Chloride 0.65% Na Soln 45 Ml ([place])) 1 - 2 sprays NA PRN PRN PRN Reason: Nasal Dryness/Congestion Stop: 10/30/21 22:24 Trazodone HCl (Trazodone Hcl 100 Mg Tab) 100 mg PO HS MICHELLE Stop: 10/31/21 21:59 Last Admin: 10/02/21 21:24 Dose: 100 mg Documented by: Venlafaxine HCl (Venlafaxine Hcl Xr 37.5 Mg Capxr) 37.5 mg PO QAM MICHELLE Stop: 11/01/21 08:59 Last Admin: 10/03/21 08:24 Dose: 37.5 mg Documented by: Zinc Acetate/Diphenhydramine (Diphenhydramine 2%/Zinc 0.1% Cream 28gm Tube) 1 appln EXT BID PRN PRN Reason: rash Stop: 10/31/21 15:23 Mental Health & Subst Abuse Tx Therapist Name of Therapist: None [employer] Name of [employer]: None
[2021-10-03 08:52] LABS: Marijuana Quant, GCMS Urine 263 ng/mL (<5)
[2021-10-03] MEDS ORDERED: FEXOFENADINE 60 MG TAB PO ONE (11:40)
[2021-10-03] MEDS ORDERED: FEXOFENADINE 60 MG TAB PO PRN (16:44)
[2021-10-03] MEDS: CITALOPRAM 20 MG TAB PO SCH (21:27)
[2021-10-03] MEDS: traZODone HCL 100 MG TAB PO SCH (21:27)
--- NOTE | 2021-10-04 08:40 | Psychiatric Progress Note ---
Date of Service October 04, 2021 Impression / Recommendations Impression The patient is a 25 year old individual who prefers they/them pronouns with a history of depression and BPAD who was admitted for worsening depression and SI with plans in the context of recent stressors including completing his masters degree and upcoming move. Diagnostically consistent with MDD with anxious distress and KELLY with panic attacks. They do not have any documented history of manic episodes, possible hx of hypomania and thus BPAD II but topimax is not effective for allan nor hypomania so suspect if he was going to develop hypomania on unopposed SSRI treatment this would have occurred already. The tarsha patel is deemed unstable and requires psychiatric hospitalization for diagnostic clarification, safety and stabilization, medication management and development of further coping skills. 10/04/2021: Tolerating venlafaxine higher dose, consent to discontinuation of Celexa. Consents to trial of propranolol to help with AM anxiety, reviewed side effects including but not limited to dizziness, mood changes. Still with anxiety in the morning but better in the afternoons. Discussed pleasant activity scheduling and behavioral activation strategies. (1) Recurrent severe major depressive disorder with anxiety: (2) Suicidal ideation: (3) Self-harming behavior: (4) Anxiety: 10/04/21: Discontinue celexa. Continue with other medication. Add propranolol 10mg BID prn for anxiety. 10/03/21: Continue citlaopram for one more day. Increase Effexor XR to 75mg qd tomorrow. Continue trazodone qhs prn. 10/02/21: Decrease citalopram to 5 mg qhs. Continue with Effexor XR 37.5 mg and trazodone prn. 10/01/21: The patient was admitted to the [facility] ([facility] mental health unit) on q15 min checks (behavioral with suicide precautions) for safety. The patient will participate in group, recreational, and milieu therapies and will be offered additional individual and family sessions as clinically appropriate. -Decrease citalopram to 10mg qhs -Effexor XR 37.5 mg qd -Discontinue Topimax -trazodone 100mg qhs -benadryl cream prn for contact dermatitis from tape from blood draw -zofran prn Inventory Assets Strengths: well educated, supportive partner, has outpatient therapist, willing to seek treatment Needs: additional coping skills, medication adjustment, safety and stabilization Suicide Risk Level Suicide Risk Level: Moderate (q15 min suicide checks) Suicide Risk Level Comments: Acute risk high-moderate given SI with plan prior to admission, depression with tearfulness but denies SI and feels safe in the inpatient setting and able to alert staff if SI worsens or intensifies or if he feels unsafe. Risk Factors Assessment Male: Yes : Yes Do You Have Access To A Gun?: No Health Problems: No Mental Health Diagnoses: Yes Substance Use Disorders: No Previous Attempt: Yes Family History of Suicide: No Previous Psychiatric Hospitalization: No Hopelessness: Yes Protective Factors Assessment Employed: Yes ([employer]) Stable Relationships: Yes Supportive Family: Yes Good Rapport with Provider: Yes Interval History Identifying Information MARCELLE DAILY is a 25-year-old gender neutral individual who currently lives in [place] with their partner, has a history of bipolar disorder and depression, and was admitted on 09/30/21 22:25 on a 201 voluntary commitment for worsening depression and SI with plan. Chief Complaint "This morning was difficult, it's better this afternoon". Review of Systems Sleep Information Total Hours of Sleep: 6.5 Meal Information Percent Meal Consumed - Breakfast: 50 Percent Meal Consumed - Lunch: 100 Percent Meal Consumed - Dinner: 100 Nutrition Comment: food saved for later Subjective Subjective Patient was seen & assessed and interval progress reviewed with treatment team nursing and social work. Still quite isolative at times to their room. Eating their meals. Daysi helped with their sinuses. Anxiety last evening. A lot of anxiety this morning, Vistaril didn't seem to help. This afternoon their mood is a bit better with less anxiety. No SI-they identify this change is due to staying focused on the present instead of worrying about the future and they plan to buy a service planner to help schedule activities that will help them feel a sense of accomplish and stay focused on the week ahead and have a sense of control. They are also looking forward to living closer to their mother. No side effects from higher dose of venlafaxine. Physical Exam Psychiatric Orientation: alert and oriented x 3 Apperance: appropriately dressed and appropriately groomed Eye Contact: good eye contact Motor Behavior: no abnormal motor movements Speech: normal rate/rhythm/volume of speech Affect: + anxious affect Mood: + depressed mood and + anxious mood Thought Process: goal directed thought process Thought Content: reality based without delusions Suicidal Thoughts: denies suicidal thoughts, denies suicidal plan and denies suicidal intent Homicidal Thoughts: denies homicidal thoughts Hallucinations: no auditory hallucinations and no visual hallucinations Cognition: recent memory grossly intact, remote memory grossly intact, attention grossly intact and language grossly intact Estimated Intelligence: consistent with education level Insight: + fair insight Judgement: + fair judgement Vital Signs (Past 24 Hours) Last Vital Signs Temp 36.8 C 10/04/21 06:44 Pulse 88 10/04/21 06:45 Resp 18 10/04/21 06:44 BP 109/69 10/04/21 06:45 Pulse Ox 98 10/03/21 06:00 Results & Data ([facility]) Laboratory Results Laboratory Results - last 24 hr 09/30/21 15:50 U Marijuana THC Carboxy 263 H Drug Screen Comment SEE NOTE Current Inpatient Medications Current Inpatient Medications: Current Inpatient Medications Acetaminophen (Acetaminophen 325 Mg Tab) 650 mg PO Q4H PRN PRN Reason: Headache or Minor Fever Stop: 10/30/21 22:24 Al Hydrox/Mg Hydrox/Simethicone (Aluminum/Magnesium Susp 30 Ml Udc) 30 ml PO Q4H PRN PRN Reason: GI Upset Stop: 10/30/21 22:24 Bismuth Subsalicylate (Bismuth Subsalicylate Liqd 236 Ml) 15 ml PO PRN PRN PRN Reason: Loose Stool Stop: 10/30/21 22:24 Citalopram Hydrobromide (Citalopram 20 Mg Tab) 5 mg PO HS MICHELLE Stop: 11/01/21 21:59 Last Admin: 10/03/21 21:27 Dose: 5 mg Documented by: Fexofenadine HCl (Fexofenadine 60 Mg Tab) 60 mg PO DAILY PRN PRN Reason: Allergy Symptoms Stop: 11/03/21 08:59 Hydroxyzine HCl (Hydroxyzine Hcl 25 Mg Tab) 50 mg PO HSZ PRN PRN Reason: Insomnia Stop: 10/30/21 22:24 Hydroxyzine HCl (Hydroxyzine Hcl 25 Mg Tab) 25 mg PO Q4H PRN PRN Reason: Anxiety Stop: 10/30/21 22:24 Last Admin: 10/01/21 15:01 Dose: 25 mg Documented by: Magnesium Hydroxide (Magnesium Hydroxide Susp 30 Ml Udc) 30 ml PO DAILY PRN PRN Reason: Constipation Stop: 10/30/21 22:24 Ondansetron HCl (Ondansetron 2 Mg Od Tab) 2 mg PO DAILY PRN PRN Reason: Nausea Stop: 10/31/21 15:23 Sodium Chloride (Sodium Chloride 0.65% Na Soln 45 Ml ([place])) 1 - 2 sprays NA PRN PRN PRN Reason: Nasal Dryness/Congestion Stop: 10/30/21 22:24 Trazodone HCl (Trazodone Hcl 100 Mg Tab) 100 mg PO HS MICHELLE Stop: 10/31/21 21:59 Last Admin: 10/03/21 21:27 Dose: 100 mg Documented by: Venlafaxine HCl (Venlafaxine Hcl Xr 75 Mg Capxr) 75 mg PO QAM MICHELLE Stop: 11/03/21 08:59 Zinc Acetate/Diphenhydramine (Diphenhydramine 2%/Zinc 0.1% Cream 28gm Tube) 1 appln EXT BID PRN PRN Reason: rash Stop: 10/31/21 15:23 Mental Health & Subst Abuse Tx Therapist Name of Therapist: None [employer] Name of Nuclear Spectroscopist: None
[2021-10-04] MEDS: VENLAFAXINE HCL XR 75 MG CAPXR PO SCH (09:39)
[2021-10-04] MEDS: hydrOXYzine HCl 25 MG TAB PO PRN (09:39)
[2021-10-04] MEDS ORDERED: PROPRANOLOL HCL 10 MG TAB PO PRN (17:34)
[2021-10-04] MEDS: traZODone HCL 100 MG TAB PO SCH (21:09)
[2021-10-05] MEDS: VENLAFAXINE HCL XR 75 MG CAPXR PO SCH (08:46)
--- NOTE | 2021-10-05 10:40 | Discharge Summary ---
Date of Service October 05, 2021 History of Present Illness Gomez presents for psychiatric admission at the recommendation of their outpatient psychiatrist for worsening depression and intensifying SI with thoughts of overdosing on medication or cutting himself and bleeding to . Their depression and SI has been worsening over the last two weeks with near constant thoughts of SI which are making it difficult for them to sleep and caused self-harm urges with some behaviors of hitting themself in the head. 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 "My anxiety is fueling concerns about the future and then the depression is making it feel like what's the point". They endorse symptoms of depression including low energy, decreased motivation, social isolation, poor sleep, decreased appetite (lost 19lbs in the last few weeks, in part also due to recent COVID infection), tearfulness, hopelessness and SI with plans. They also endorse increased anxiety with panic attacks with SOB as well as somatic symptoms of nausea and vomiting (non-intentional) and increased paranoia about someone breaking in at night or being followed if they go on walks at night/nightmares. They are currently prescribed citalopram for depression (has been on this since high school), topimax for bipolar disorder and trazodone 100mg qhs (this works well) by their psychiatric provider at [facility]. Psychiatric ROS notable for denial of history or current symptoms of psychosis, HI/aggression, OCD, hx anorexia in high school but denies any current restriction or purging, no depersonalization/derealization, no hx trauma/PTSD. They endorses a history of "once in awhile" in undergrad and when they first started their masters degree he would go 2-3 days with limited sleep and they would try to nap but couldn't fall asleep and would feel tired. States in undergrad they would drive home a lot which was 3.5 hours away and would do it on a whim and drive home and then get upset and drive right back to school. Sometimes would talk more quickly. Never had a clear episode of 5 days or more of elevated or irritable mood with decreased need for sleep and elevated energy. Physical Exam Psychiatric Orientation: alert and oriented x 3 Apperance: appropriately dressed and appropriately groomed Eye Contact: good eye contact Motor Behavior: no abnormal motor movements Speech: normal rate/rhythm/volume of speech Affect: + depressed affect, + anxious affect and + tearful affect Mood: + depressed mood and + anxious mood Thought Process: goal directed thought process Thought Content: reality based without delusions Suicidal Thoughts: denies suicidal thoughts, denies suicidal plan and denies suicidal intent Homicidal Thoughts: denies homicidal thoughts Hallucinations: no auditory hallucinations and no visual hallucinations Cognition: recent memory grossly intact, remote memory grossly intact, attention grossly intact and language grossly intact Estimated Intelligence: consistent with education level Insight: + fair insight Judgement: + fair judgement Vital Signs (Past 24 Hours) Last Vital Signs Temp 36.7 C 10/05/21 06:35 Pulse 69 10/05/21 06:36 Resp 18 10/05/21 06:35 BP 103/71 10/05/21 06:36 Pulse Ox 98 10/03/21 06:00 See admission H&P and DOD summary. Principal Diagnosis Major Depressive disorder, recurrent, with anxious distress Psychiatric Data See daily stay summary. In short, patient was engaged with the social/therapeutic milieu of the unit, safety was maintained and the patient was cooperative with care. Medication changes included discontinuation of Celexa and initiation of venlafaxine ER and Vistaril and Propranolol as needed for anxiety/panic attacks and they tolerated this well. Venlafaxine ER can be further titrated to 150mg qd after 4-6 weeks if well tolerated and if mood symptoms persist. It seemed much of their symptoms emerged in the context of the stress of making a big life transition and the anxiety related to this including some feelings of imposter syndrome, decreased sense of control and uncertainty. They discussed ways they planned to develop more routine including use of a store planner, scheduling pleasant activities, utilizing support from family, and challenging cognitive distortions as strategies to help lessen anxiety and allowed for resolution of SI. After the first day they ate well throughout their hospitalization. A family session was held and safety plan was completed prior to discharge. In the days leading up to discharge their SI lessened and went away and they had no urges for self-harm. They actively and insightfully participated in safety planning and in discussions about ways to seek support and recognizing warning signs and utilizing coping skills. Reviewed mobile apps that could be used for additional ways to have their safety plan and contacts easily available should thoughts of SI re-emerge in the future. Reviewed importance of seeking emergency care should SI intensify, worsen or should they feel unsafe in the future which they agree to do. On the day of discharge they stated their mood was "nervous but also looking forward to going" and remained future-oriented including spending time with their partner, making dinner, preparing for their move to [place], and seeing their mom. Day of Discharge Assessment Today the patient voices readiness for discharge. They note improvement in mood and anxiety. They deny thoughts of harm to self or others. Thoughts are organized and they are clinically improved from admission. There is no evidence of psychosis. They improved in the hospital with support and medication adjustments. They agree to take medications as prescribed and keep follow-up appointments. At the time of the discharge they are deemed to be stable and appropriate for outpatient level of care. They are not deemed to be at imminent risk of harm to self or others. They are aware of emergency and crisis services. Knows to call 911 or go to nearest emergency care center if in a crisis which cannot be handled as an outpatient. Transition of Care Transition Of Care Record: was reviewed with the patient Advance Directives Advance Directives Information Provided: No Advance Directives: No Mental Health Advance Directive: No Advance Directives on File: No Living Will: No Power of Printer'S Assistant: No Advance Directives Reason:: Declines as Mental Health Visit. Suicide Risk Level Suicide Risk Level: Low (q15 min observation checks) Suicide Risk Level Comments: Acute risk is low given improvement in mood and denial of SI, lack of access to lethal means, improvement in sleep ,hopefulness improvement in anxiety. 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 Counseled on ways to reduce acute and chronic risk including engaging with outpatient providers, using safety plan if needed, utilizing supports, taking medication, and using coping skills. Modifiable risk factors of SI and depression were addressed during hospitalization through development of new coping skills, family meeting, safety planning, and medication adjustments. Risk Factors Assessment Male: Yes : Yes Do You Have Access To A Gun?: No Health Problems: No Mental Health Diagnoses: Yes Substance Use Disorders: No Previous Attempt: Yes Family History of Suicide: No Previous Psychiatric Hospitalization: No Hopelessness: No Protective Factors Assessment Employed: Yes ([employer]) Stable Relationships: Yes Supportive Family: Yes Good Rapport with Provider: Yes Discharge Data Lab Results 09/30/21 09/30/21 09/30/21 15:50 15:50 15:50 WBC RBC Hgb Hct MCV MCH MCHC RDW Std Deviation RDW Coeff of Leigh Plt Count MPV Immature Gran % (Auto) Neut % (Auto) Lymph % (Auto) [place] % (Auto) Eos % (Auto) Baso % (Auto) Neut # (Auto) Lymph # (Auto) [place] # (Auto) Eos # (Auto) Baso # (Auto) Immature Gran # (Auto) Sodium Potassium Chloride Carbon Dioxide Anion Gap BUN Creatinine Est Cr Clr Drug Dosing Est GFR ( Amer) Est GFR (Non-Af Amer) BUN/Creatinine Ratio Glucose Calcium Total Bilirubin AST ALT Alkaline Phosphatase Total Protein Albumin Globulin Albumin/Globulin Ratio TSH Urine Color Dark Yellow Urine Appearance Clear Urine pH 5.5 Ur Specific Dowell 1.030 Urine Protein Trace H Urine Glucose (UA) Negative Urine Ketones 2+ H Urine Blood Negative Urine Nitrite Negative Urine Bilirubin 1+ H Urine Urobilinogen Negative Ur Leukocyte Esterase Negative Urine WBC (Auto) 1-5 Urine RBC (Auto) 0-4 U Hyaline Cast (Auto) 1-5 U Epithel Cells (Auto) 10-20 H Urine Bacteria (Auto) Negative Salicylates Urine Opiates Screen Neg Ur Methadone, Qual Neg Acetaminophen Urine Barbiturates Neg Ur Phencyclidine (PCP) Neg U Amphetamin/Meth Scrn Neg MDMA (Ecstasy) Screen Neg U Benzodiazepines Scrn Neg Ur Cocaine Metabolite Neg U Marijuana (THC) Screen Pos H U Marijuana THC Carboxy 263 H Drug Screen Comment SEE NOTE Ethyl Alcohol mg/dL SARS-CoV-2, RNA, NAAT 09/30/21 09/30/21 09/30/21 16:25 16:36 16:36 WBC 7.60 RBC 5.49 Hgb 16.5 Hct 45.2 MCV 82.3 MCH 30.1 MCHC 36.5 H RDW Std Deviation 36.4 RDW Coeff of Leigh 12.2 Plt Count 262 MPV 11.2 H Immature Gran % (Auto) 0.3 Neut % (Auto) 68.8 Lymph % (Auto) 20.4 Coamo % (Auto) 9.9 Eos % (Auto) 0.5 Baso % (Auto) 0.1 Neut # (Auto) 5.23 Lymph # (Auto) 1.55 [place] # (Auto) 0.75 H Eos # (Auto) 0.04 Baso # (Auto) 0.01 Immature Gran # (Auto) 0.02 Sodium 138 Potassium 3.6 Chloride 103 Carbon Dioxide 23 Anion Gap 12 H BUN 11 Creatinine 0.97 Est Cr Clr Drug Dosing 149.5 Est GFR ( Amer) 126.1 Est GFR (Non-Af Amer) 108.8 BUN/Creatinine Ratio 11.3 Glucose 97 Calcium 9.6 Total Bilirubin 1.0 AST 21 ALT 47 Alkaline Phosphatase 62 Total Protein 8.1 Albumin 5.0 Globulin 3.1 Albumin/Globulin Ratio 1.6 TSH Urine Color Urine Appearance Urine pH Ur Specific Dowell Urine Protein Urine Glucose (UA) Urine Ketones Urine Blood Urine Nitrite Urine Bilirubin Urine Urobilinogen Ur Leukocyte Esterase Urine WBC (Auto) Urine RBC (Auto) U Hyaline Cast (Auto) U Epithel Cells (Auto) Urine Bacteria (Auto) Salicylates Urine Opiates Screen Ur Methadone, Qual Acetaminophen Urine Barbiturates Ur Phencyclidine (PCP) U Amphetamin/Meth Scrn MDMA (Ecstasy) Screen U Benzodiazepines Scrn Ur Cocaine Metabolite U Marijuana (THC) Screen U Marijuana THC Carboxy Drug Screen Comment Ethyl Alcohol mg/dL SARS-CoV-2, RNA, NAAT NEGATIVE 09/30/21 09/30/21 09/30/21 16:36 16:36 16:36 WBC RBC Hgb Hct MCV MCH MCHC RDW Std Deviation RDW Coeff of Leigh Plt Count MPV Immature Gran % (Auto) Neut % (Auto) Lymph % (Auto) [place] % (Auto) Eos % (Auto) Baso % (Auto) Neut # (Auto) Lymph # (Auto) [place] # (Auto) Eos # (Auto) Baso # (Auto) Immature Gran # (Auto) Sodium Potassium Chloride Carbon Dioxide Anion Gap BUN Creatinine Est Cr Clr Drug Dosing Est GFR ( Amer) Est GFR (Non-Af Amer) BUN/Creatinine Ratio Glucose Calcium Total Bilirubin AST ALT Alkaline Phosphatase Total Protein Albumin Globulin Albumin/Globulin Ratio TSH 1.654 Urine Color Urine Appearance Urine pH Ur Specific Dowell Urine Protein Urine Glucose (UA) Urine Ketones Urine Blood Urine Nitrite Urine Bilirubin Urine Urobilinogen Ur Leukocyte Esterase Urine WBC (Auto) Urine RBC (Auto) U Hyaline Cast (Auto) U Epithel Cells (Auto) Urine Bacteria (Auto) Salicylates < 3.0 L Urine Opiates Screen Ur Methadone, Qual Acetaminophen < 3 L Urine Barbiturates Ur Phencyclidine (PCP) U Amphetamin/Meth Scrn MDMA (Ecstasy) Screen U Benzodiazepines Scrn Ur Cocaine Metabolite U Marijuana (THC) Screen U Marijuana THC Carboxy Drug Screen Comment Ethyl Alcohol mg/dL < 10.0 SARS-CoV-2, RNA, NAAT Hospital Course (1) Recurrent severe major depressive disorder with anxiety: (2) Suicidal ideation: (3) Self-harming behavior: (4) Anxiety: (5) KELLY (generalized anxiety disorder): 10/05/21: Continues to tolerate venlafaxine. No withdrawal side effects from discontinuation of Celexa. Tried a dose of propranolol and found this helpful. Reviewed risks including but not limited to exacerbation of asthma symptoms/breathing difficulty, low BP, syncope and consents to taking this and would like a prescription for this as prn. Also would like to have Vistaril available as prn after discharge. 10/04/21: Discontinue celexa. Continue with other medication. Add propranolol 10mg BID prn for anxiety. 10/03/21: Continue citlaopram for one more day. Increase Effexor XR to 75mg qd tomorrow. Continue trazodone qhs prn. 10/02/21: Decrease citalopram to 5 mg qhs. Continue with Effexor XR 37.5 mg and trazodone prn. 10/01/21: The patient was admitted to the [facility]) on q15 min checks (behavioral with suicide precautions) for safety. The patient will participate in group, recreational, and milieu therapies and will be offered additional individual and family sessions as clinically appropriate. -Decrease citalopram to 10mg qhs -Effexor XR 37.5 mg qd -Discontinue Topimax -trazodone 100mg qhs -benadryl cream prn for contact dermatitis from tape from blood draw -zofran prn Mental Health & Subst Abuse Tx Psychiatrist Name of Psychiatrist: PCP will discuss making referral with family Therapist Name of Therapist: Provided info for therapists for family to contact Cfo Name of Cfo: None Post Discharge Appointments Primary Care Physician Name Of Family Doctor: Dr. Peterson [facility] Date of Appointment with PCP: 10/21/21 Time of Appointment with PCP: 11am Other #1: Name of Aftercare Appointment: Potential therapy option: [facility] - Jen David Phone Number of Aftercare Appointment: [phone] Aftercare Appointment Comment: [address] [place], [place] #2: Name of Aftercare Appointment: Potential therapy option: [facility] Phone Number of Aftercare Appointment: [phone] Aftercare Appointment Comment: [address] [address] #3: Name of Aftercare Appointment: Potential therapy option: [facility] Phone Number of Aftercare Appointment: [phone] #4: Name of Aftercare Appointment: Potential therapy option: [facility] - Cecilia Farrell Phone Number of Aftercare Appointment: [phone] Aftercare Appointment Comment: Could be telehealth #5: Name of Aftercare Appointment: Potential therapy option: [facility] Phone Number of Aftercare Appointment: [phone] Aftercare Appointment Comment: [address] [place] [address] Contact Information Discharge Discharge Address: [address] [place] [address] Discharge Plan Discharge Items Patient Disposition: Home - Self-Care Reason For Visit: S/I, MDD Discharge Diagnosis: Major Depressive Disorder, recurrent, with anxious distress Activity: Resume your previous activity Non-emergency contact: Primary Care Provider Call non-emergency contact if: you have any medication questions and your symptoms worsen Follow-up/Referrals: [facility] [Primary Care Provider] - Diet: Regular Addtl Attending Provider Instructions: Optional Mobile Apps: -Suicide safety plan -Virtual Hope Box -[facility] SPECIAL CARE INSTRUCTIONS: 1. Follow through with your scheduled aftercare appointments. If unable to keep an appointment, please call to reschedule. 2. Take your medication only as prescribed. Medication should not be changed or stopped without the approval of your doctor. In the event of worsening symptoms or concerns about side effects, contact your doctor immediately. 3. Utilize new healthy coping skills, anger management skills, and stress management skills learned during your hospitalization. Journal feelings and process them with a support person. Identify stressors or situations that may result in relapse, deterioration or inappropriate behaviors and develop a plan to deal with those issues. 4. If your coping skills are ineffective and you are in crisis, contact your outpatient providers for direction. If unable to reach your providers, please call the [facility] CRISIS LINE AT , go to the [facility] walk-in center at [address], [address], [place], or go to the closest Emergency Room. 5. Avoid alcohol and un-prescribed drugs. 6. You have been provided with the Mental Health Advance Directives Pamphlet for your review. 7. Your condition is stable for discharge to outpatient level of care, but recovery is an ongoing process. Ifthoughts to harm yourself or others return, follow the safety plan developed during your stay. Planning for a safe return home includes securing weapons. Our treatment team recommends weaponsbe removed from the home until your outpatient provider reassesses your progress. In rare cases where the items themselvescannot be removed, guns and ammunitionshould be secured separatelyand keys stored by a reliable personoutside of the home. If you were admitted on an involuntary commitment, the police or other legal authorities may be involved in this process. AFTERCARE APPOINTMENTS: * Please call your insurance company prior to your scheduled appointment to co nfirm your aftercare providers are covered. Take your insurance information to your appointments. WHO TO CALL AND WHEN: Medical Emergencies: For questions or emergencies related to your hospital stay, please contact the Inpatient Behavioral Health Unit at [phone]. A duplicating machine mechanic is on-call 20/11 for the Behavioral Health Unit for emergencies At any time you feel your situation is an emergency, you may also call 911 immediately. Pending Studies at Discharge: No Stand-Alone Forms: [facility] Medications and DC Order Prescriptions: New venlafaxine 75 mg Capsule,Extended Release 24hr 75 mg PO QAM 30 Days Qty: 30 RF: 0 propranolol 10 mg Tablet 10 mg PO BID PRN (Reason: anxiety) 30 Days Qty: 15 RF: 0 trazodone 100 mg Tablet 100 mg PO HS PRN (Reason: insomnia) 30 Days Qty: 30 RF: 0 hydroxyzine HCl 25 mg Tablet 25 mg PO DAILY PRN (Reason: anxiety) 30 Days Qty: 15 RF: 0 Discontinued citalopram 20 mg tablet 20 mg PO QPM RF: 0 trazodone 50 mg tablet 100 mg PO HS PRN (Reason: Insomnia) RF: 0 topiramate 25 mg tablet 50 mg PO DAILY RF: 0 Discharge Orders: Discharge Order (Routine); Ordered 10/05/21 Ordered By: Emily Elias Admission Data Admit Date/Time: 09/30/21 22:25 Attending Provider: Emily Elias Admit Provider: Emily Elias Primary Care Provider: [employer] Other Interventions: Discharge Summary Assessment (RN) Last Done: 10/05/21 12:36 PSY Interdisciplinary Discharge Planning Last Done: 10/05/21 13:16 Coding Level of Care Code 36548 D/C day mgmt > 30 min Diagnoses Recurrent severe major depressive disorder with anxiety F33.2; F41.9 Suicidal ideation R45.851 Self-harming behavior Anxiety F41.9 KELLY (generalized anxiety disorder) F41.1 Time Spent (min) 45
== END 2021-10-05 14:05 | disposition home or self-care (01) | DRG 885 ==
LOC: ED 15:25 → 3S 22:25